=== PATIENT | female | born 1955 | race Caucasian/White ===

== ENCOUNTER 2024-12-29 18:01 | Inpatient (IN) ==
[2024-12-29] MEDS: LACTULOSE 20 GM/30 ML ORAL.SOL PO ONE (18:27)
[2024-12-29 18:42] LABS: Basophils # (Auto) 0.04 K/mcL (0.00-0.30); Eosinophils # (Auto) 0.31 K/mcL (0.00-0.70); Hematocrit 33.2 % (34.1-44.9); Hemoglobin 10.8 g/dL (11.2-15.7); Lymphocytes # (Auto) 1.54 K/mcL (1.50-4.80); Lymphocytes % (Auto) 39.9 % (15.5-49.0); Mean Cell Volume 104.7 fL (80.0-100.0); Mean Corpuscular HGB Conc 32.5 g/dL (31.0-36.0); Mean Platelet Volume 10.3 fL (8.8-12.5); Monocytes # (Auto) 0.39 K/mcL (0.10-0.90); Monocytes % (Auto) 10.1 % (1.0-12.0); Platelet Count 88 K/mcL (140-440); RBC 3.17 M/mcL (3.59-5.38); Red Cell Distribution Width 12.5 % (11.5-14.5); WBC 3.9 K/mcL (4.5-11.0)
[2024-12-29 19:08] LABS: Alcohol, Blood < 10.1 mg/dL; Alcohol,Blood < 0.010 gm/dL (<0.010)
[2024-12-29 19:13] LABS: Thyroid Stimulating Hormone 3.16 uIU/mL (0.27-5.01)
[2024-12-29 19:17] LABS: ALT/SGPT 51 U/L (<40); AST/SGOT 46 U/L (<32); Albumin 3.8 gm/dL (3.2-5.2); Albumin/Globulin Ratio 1.2 (1.0-2.3); Alkaline Phosphatase 140 U/L (39-117); Bilirubin,Total 0.8 mg/dL (0.1-1.0); Blood Urea Nitrogen 35 mg/dL (8-23); Calcium 9.6 mg/dL (8.6-10.4); Carbon Dioxide 25 mmol/L (22-30); Chloride 102 mmol/L (96-108); Globulin 3.3 gm/dL (2.2-3.7); Glomerular Filtration Rate 65; Glucose 220 mg/dL (70-105); Potassium 4.1 mmol/L (3.3-5.1); Sodium 139 mmol/L (133-145)
[2024-12-29 19:32] LABS: INR 1.2 (0.9-1.1); Prothrombin Time 15.3 sec (11.9-14.5)
[2024-12-29 20:05] LABS: Free T4 (Free Thyroxine) 0.75 ng/dL (0.93-1.70)
[2024-12-29] MEDS ORDERED: ALBUTEROL SULFATE 2.5 MG/3 ML NEBULIZER NEB PRN (20:42)
[2024-12-29] MEDS ORDERED: DEXTROSE 31 GM ORAL.SUSP PO PRN (20:42)
[2024-12-29] MEDS ORDERED: ONDANSETRON 4 MG/2 ML VIAL IV PRN (20:42)
[2024-12-29] MEDS ORDERED: DEXTROSE 50% 50 ML VIAL IV PRN (20:42)
[2024-12-29] MEDS: LACTULOSE 20 GM/30 ML ORAL.SOL PO SCH (21:21)
[2024-12-29] MEDS: 0.9 % SODIUM CHLORIDE 10 ML SYRINGE IV SCH (21:21)
[2024-12-29] MEDS: RIFAXIMIN 550 MG TABLET PO SCH (21:21)
[2024-12-29] MEDS: INSULIN LISPRO 1 UNIT/0.01 ML UNIT SQ SCH (21:21)
[2024-12-30 06:40] LABS: Basophils # (Auto) 0.03 K/mcL (0.00-0.30); Basophils % (Auto) 0.9 % (0.0-2.0); Eosinophils # (Auto) 0.24 K/mcL (0.00-0.70); Eosinophils % (Auto) 7.2 % (0.0-7.0); Hematocrit 32.9 % (34.1-44.9); Hemoglobin 10.3 g/dL (11.2-15.7); Mean Cell Volume 108.9 fL (80.0-100.0); Mean Corpuscular HGB Conc 31.3 g/dL (31.0-36.0); Mean Platelet Volume 10.4 fL (8.8-12.5); Monocytes # (Auto) 0.42 K/mcL (0.10-0.90); Monocytes % (Auto) 12.6 % (1.0-12.0); Neutrophils % (Auto) 34.3 % (38.0-78.0); Platelet Count 77 K/mcL (140-440); RBC 3.02 M/mcL (3.59-5.38); Red Cell Distribution Width 12.4 % (11.5-14.5); WBC 3.3 K/mcL (4.5-11.0)
[2024-12-30 06:50] LABS: ALT/SGPT 43 U/L (<40); AST/SGOT 41 U/L (<32); Albumin 3.3 gm/dL (3.2-5.2); Albumin/Globulin Ratio 1.1 (1.0-2.3); Alkaline Phosphatase 113 U/L (39-117); Bilirubin,Direct 0.5 mg/dL (<0.3); Blood Urea Nitrogen 29 mg/dL (8-23); Calcium 9.5 mg/dL (8.6-10.4); Carbon Dioxide 22 mmol/L (22-30); Chloride 104 mmol/L (96-108); Globulin 3.1 gm/dL (2.2-3.7); Glomerular Filtration Rate 75; Glucose 155 mg/dL (70-105); Lactate Dehydrogenase 222 U/L (135-225); Phosphorous 3.7 mg/dL (2.5-4.5); Sodium 139 mmol/L (133-145); Triglycerides 82 mg/dL (<150); Uric Acid 7.7 mg/dL (2.5-8.0)
[2024-12-30] MEDS: INSULIN GLARGINE, HUMAN 1 UNIT/0.01 ML SQ SCH (10:35)
[2024-12-30 21:34] LABS: Appearance,Urine Clear (Clear); Bacteria,Urine Rare /hpf (0); Bilirubin,Urine Negative (Negative); Color,Urine Yellow; Glucose,Urine (UA) Negative (Negative); Ketones,Urine Negative (Negative); Leukocyte Esterase,Urine Negative /uL (Negative); Nitrate,Urine Negative (Negative); PH,Urine 6.5 (5.0-9.0); Protein,Urine Negative (Negative); Urine Blood Negative ery/mcL (Negative); Urine RBC 2 /hpf (0-3); Urine Squamous Epithelial Cell 1 /hpf (0-4); Urine WBC 0 /hpf (0-4); Urobilinogen,Urine Normal
[2024-12-31] MEDS: LACTULOSE 20 GM/30 ML ORAL.SOL PO PRN (14:36)
[2024-12-31] MEDS: LACTULOSE 20 GM/30 ML ORAL.SOL PO SCH (14:36)
[2024-12-31] MEDS ORDERED: NON FORMULARY MEDICATION 1 DOSE MISCELL (Insulin Lispro [Humalog Kwikpen Insulin] 100 unit SUB-Q SCH (15:00)
[2024-12-31] MEDS: INSULIN LISPRO 1 UNIT/0.01 ML UNIT SQ SCH (16:36)
[2024-12-31] MEDS: CARVEDILOL 3.125 MG TABLET PO SCH (20:33)
[2024-12-31] MEDS: MIRTAZAPINE 15 MG TABLET PO SCH (20:33)
[2024-12-31] MEDS: SIMVASTATIN 10 MG TABLET PO SCH (21:36)
[2025-01-01 06:29] LABS: Basophils # (Auto) 0.03 K/mcL (0.00-0.30); Basophils % (Auto) 0.6 % (0.0-2.0); Eosinophils # (Auto) 0.21 K/mcL (0.00-0.70); Eosinophils % (Auto) 4.3 % (0.0-7.0); Hematocrit 32.7 % (34.1-44.9); Hemoglobin 10.8 g/dL (11.2-15.7); Lymphocytes # (Auto) 1.71 K/mcL (1.50-4.80); Lymphocytes % (Auto) 34.7 % (15.5-49.0); Mean Cell Volume 102.2 fL (80.0-100.0); Mean Platelet Volume 10.3 fL (8.8-12.5); Monocytes # (Auto) 0.69 K/mcL (0.10-0.90); Neutrophils % (Auto) 46.2 % (38.0-78.0); Platelet Count 85 K/mcL (140-440); Red Cell Distribution Width 12.3 % (11.5-14.5); WBC 4.9 K/mcL (4.5-11.0)
[2025-01-01 06:50] LABS: ALT/SGPT 48 U/L (<40); AST/SGOT 45 U/L (<32); Albumin 3.3 gm/dL (3.2-5.2); Albumin/Globulin Ratio 1.1 (1.0-2.3); Alkaline Phosphatase 118 U/L (39-117); Bilirubin,Direct 0.5 mg/dL (<0.3); Bilirubin,Total 1.1 mg/dL (0.1-1.0); Blood Urea Nitrogen 23 mg/dL (8-23); Calcium 9.2 mg/dL (8.6-10.4); Carbon Dioxide 23 mmol/L (22-30); Chloride 106 mmol/L (96-108); Glomerular Filtration Rate 75; Glucose 172 mg/dL (70-105); Lactate Dehydrogenase 219 U/L (135-225); Phosphorous 3.2 mg/dL (2.5-4.5); Potassium 3.6 mmol/L (3.3-5.1); Sodium 141 mmol/L (133-145); Triglycerides 75 mg/dL (<150); Uric Acid 7.6 mg/dL (2.5-8.0)
[2025-01-01] MEDS: INSULIN GLARGINE, HUMAN 1 UNIT/0.01 ML SQ SCH (08:58)
[2025-01-01] MEDS: OLMESARTAN MEDOXOMIL 20 MG TABLET PO SCH (08:59)
[2025-01-01] MEDS: DULoxetine 30 MG CAPSULE PO SCH ×2 (08:59)
[2025-01-01] MEDS: ACETAMINOPHEN 500 MG TABLET PO PRN (11:15)
[2025-01-02] MEDS: LACTULOSE 20 GM/30 ML ORAL.SOL PO SCH (09:11)
[2025-01-02] MEDS: INSULIN LISPRO 1 UNIT/0.01 ML UNIT SQ SCH (17:05)
[2025-01-02] MEDS: INSULIN GLARGINE, HUMAN 1 UNIT/0.01 ML SQ SCH (20:10)
[2025-01-02] MEDS ORDERED: INSULIN GLARGINE, HUMAN 1 UNIT/0.01 ML SQ SCH (21:00)
[2025-01-03 07:37] VITALS: TEMP 98.4
[2025-01-03 11:57] LABS: Appearance,Urine CLEAR (Clear); Bilirubin,Urine Negative (Negative); Color,Urine YELLOW; Glucose,Urine (UA) >=500 mg/dL (Negative); Ketones,Urine 5 mg/dL (Negative); Leukocyte Esterase,Urine Negative /uL (Negative); Mucus,Urine FEW /hpf; Nitrate,Urine Negative (Negative); Protein,Urine Negative (Negative); Urine Blood Negative (Negative); Urine Hyaline Cast 1 /lph (0-2); Urine RBC 1 /hpf (0-3); Urine Squamous Epithelial Cell 4 /hpf (0-4); Urine Transitional Epi Cells 1 /hpf (0-2); Urine WBC 2 /hpf (0-4); Urobilinogen,Urine Negative
[2025-01-03 14:50] VITALS: O2SAT 99
[2025-01-03] MEDS ORDERED: INSULIN GLARGINE, HUMAN 1 UNIT/0.01 ML SQ SCH (21:00)
== END 2025-01-03 14:00 | disposition home or self-care (01) | DRG 442 ==
LOC: ED 18:01 → MEDSUR 20:39
PROVIDERS: ADMIT Internal Medicine; ATTEND Internal Medicine

== ENCOUNTER 2025-04-24 09:28 | Inpatient (IN) ==
[2025-04-24 11:09] LABS: Basophils # (Auto) 0.03 K/mcL (0.00-0.30); Basophils % (Auto) 0.6 % (0.0-2.0); Eosinophils # (Auto) 0.34 K/mcL (0.00-0.70); Eosinophils % (Auto) 7.1 % (0.0-7.0); Hematocrit 35.5 % (34.1-44.9); Hemoglobin 11.8 g/dL (11.2-15.7); Lymphocytes # (Auto) 1.51 K/mcL (1.50-4.80); Lymphocytes % (Auto) 31.7 % (15.5-49.0); Mean Cell Volume 103.8 fL (80.0-100.0); Mean Corpuscular HGB Conc 33.2 g/dL (31.0-36.0); Mean Platelet Volume 11.2 fL (8.8-12.5); Monocytes # (Auto) 0.59 K/mcL (0.10-0.90); Monocytes % (Auto) 12.4 % (1.0-12.0); Platelet Count 88 K/mcL (140-440); RBC 3.42 M/mcL (3.59-5.38); WBC 4.8 K/mcL (4.5-11.0)
[2025-04-24 11:35] LABS: ALT/SGPT 57 U/L (<40); AST/SGOT 44 U/L (<32); Albumin 3.8 gm/dL (3.2-5.2); Albumin/Globulin Ratio 1.2 (1.0-2.3); Alkaline Phosphatase 109 U/L (39-117); Bilirubin,Total 1.1 mg/dL (0.1-1.0); Blood Urea Nitrogen 53 mg/dL (8-23); Calcium 9.9 mg/dL (8.6-10.4); Carbon Dioxide 19 mmol/L (22-30); Chloride 102 mmol/L (96-108); Globulin 3.3 gm/dL (2.2-3.7); Glomerular Filtration Rate 38; Glucose 142 mg/dL (70-105); Potassium 5.1 mmol/L (3.3-5.1); Sodium 134 mmol/L (133-145)
[2025-04-24 12:15] LABS: Free T4 (Free Thyroxine) 0.96 ng/dL (0.93-1.70)
[2025-04-24 13:44] LABS: INR 1.2 (0.9-1.1); Prothrombin Time 16.2 sec (11.9-14.5)
[2025-04-24 14:23] LABS: Appearance,Urine CLEAR (Clear); Bilirubin,Urine Negative (Negative); Color,Urine YELLOW; Glucose,Urine (UA) >=500 mg/dL (Negative); Ketones,Urine Negative (Negative); Leukocyte Esterase,Urine Negative /uL (Negative); Mucus,Urine FEW /hpf; Nitrate,Urine Negative (Negative); Protein,Urine Negative (Negative); Urine Blood Negative (Negative); Urine Hyaline Cast 3 /lph (0-2); Urine RBC < 1 /hpf (0-3); Urine Squamous Epithelial Cell 1 /hpf (0-4); Urine Transitional Epi Cells 1 /hpf (0-2); Urine WBC 3 /hpf (0-4); Urobilinogen,Urine Negative
[2025-04-24 14:33] LABS: Amphetamine Screen,Urine None detected; Barbiturate Screen,Urine None detected; Benzodiazepines Screen,Urine Suspect positive; Cannabinoid Screen,Urine None detected; Cocaine Screen,Urine None detected; Fentanyl, Urine Screen None Detected; Opiate Screen,Urine None detected; Oxycodone, Urine Screen None detected; Phencyclidine Screen,Urine None detected
[2025-04-24] MEDS ORDERED: DEXTROSE 31 GM ORAL.SUSP PO PRN (14:50)
[2025-04-24] MEDS ORDERED: POTASSIUM CHLORIDE 40 MEQ in DEXTROSE 5% IN WATER 500 ML IV PRN (14:50)
[2025-04-24] MEDS ORDERED: METOCLOPRAMIDE 10 MG/2 ML VIAL IV PRN (14:50)
[2025-04-24] MEDS ORDERED: IPRATROPIUM/ALBUTEROL 3 ML AMPUL.NEB NEB PRN (14:50)
[2025-04-24] MEDS ORDERED: POLYETHYLENE GLYCOL 3350 17 GM PACKET PO PRN (14:50)
[2025-04-24] MEDS ORDERED: DEXTROSE 50% 50 ML VIAL IV PRN (14:50)
[2025-04-24] MEDS ORDERED: MAGNESIUM SULFATE 2 GM/50 ML BAG IV PRN (14:50)
[2025-04-24] MEDS ORDERED: SENNOSIDES 1 TABLET PO PRN (14:50)
[2025-04-24] MEDS ORDERED: POTASSIUM CHLORIDE 20 MEQ TABLET PO PRN ×2 (14:50)
[2025-04-24] MEDS ORDERED: ONDANSETRON 4 MG/2 ML VIAL IV PRN (14:50)
[2025-04-24] MEDS: 0.9 % SODIUM CHLORIDE 1,000 ML IV SCH (14:55)
[2025-04-24] MEDS: LACTULOSE 20 GM/30 ML ORAL.SOL PO SCH (15:24)
[2025-04-24] MEDS: INSULIN LISPRO 1 UNIT/0.01 ML UNIT SQ SCH (15:30)
[2025-04-24] MEDS: SIMVASTATIN 10 MG TABLET PO SCH (20:41)
[2025-04-24] MEDS: MIRTAZAPINE 15 MG TABLET PO SCH (20:41)
[2025-04-24] MEDS: CARVEDILOL 3.125 MG TABLET PO SCH (20:41)
[2025-04-24] MEDS: INSULIN GLARGINE, HUMAN 1 UNIT/0.01 ML SQ SCH (20:42)
[2025-04-24] MEDS: RIFAXIMIN 550 MG TABLET PO SCH (20:50)
[2025-04-25 06:10] LABS: ALT/SGPT 53 U/L (<40); AST/SGOT 41 U/L (<32); Albumin 3.3 gm/dL (3.2-5.2); Albumin/Globulin Ratio 1.1 (1.0-2.3); Alkaline Phosphatase 100 U/L (39-117); Bilirubin,Direct 0.4 mg/dL (<0.3); Bilirubin,Total 0.7 mg/dL (0.1-1.0); Blood Urea Nitrogen 39 mg/dL (8-23); Calcium 9.3 mg/dL (8.6-10.4); Carbon Dioxide 22 mmol/L (22-30); Chloride 109 mmol/L (96-108); Globulin 2.9 gm/dL (2.2-3.7); Glomerular Filtration Rate 57; Glucose 114 mg/dL (70-105); Lactate Dehydrogenase 227 U/L (135-225); Phosphorous 2.8 mg/dL (2.5-4.5); Potassium 4.6 mmol/L (3.3-5.1); Sodium 141 mmol/L (133-145); Triglycerides 81 mg/dL (<150); Uric Acid 7.7 mg/dL (2.5-8.0)
[2025-04-25 06:19] LABS: Basophils # (Auto) 0.04 K/mcL (0.00-0.30); Basophils % (Auto) 0.8 % (0.0-2.0); Eosinophils # (Auto) 0.37 K/mcL (0.00-0.70); Eosinophils % (Auto) 7.4 % (0.0-7.0); Hematocrit 33.4 % (34.1-44.9); Hemoglobin 10.9 g/dL (11.2-15.7); Lymphocytes # (Auto) 1.78 K/mcL (1.50-4.80); Lymphocytes % (Auto) 35.7 % (15.5-49.0); Mean Corpuscular HGB Conc 32.6 g/dL (31.0-36.0); Mean Platelet Volume 11.1 fL (8.8-12.5); Monocytes # (Auto) 0.72 K/mcL (0.10-0.90); Monocytes % (Auto) 14.4 % (1.0-12.0); Neutrophils % (Auto) 41.7 % (38.0-78.0); Platelet Count 82 K/mcL (140-440); RBC 3.15 M/mcL (3.59-5.38); Red Cell Distribution Width 12.1 % (11.5-14.5)
[2025-04-25] MEDS: LACTULOSE 20 GM/30 ML ORAL.SOL PO ONE (07:39)
[2025-04-25] MEDS: DULoxetine 30 MG CAPSULE PO SCH (09:16)
[2025-04-25] MEDS: ENOXAPARIN 40 MG/0.4 ML SYRINGE SQ SCH (09:16)
[2025-04-26 07:15] LABS: ALT/SGPT 60 U/L (<40); AST/SGOT 49 U/L (<32); Albumin 3.6 gm/dL (3.2-5.2); Albumin/Globulin Ratio 1.2 (1.0-2.3); Alkaline Phosphatase 106 U/L (39-117); Bilirubin,Direct 0.5 mg/dL (<0.3); Blood Urea Nitrogen 25 mg/dL (8-23); Calcium 9.4 mg/dL (8.6-10.4); Carbon Dioxide 21 mmol/L (22-30); Chloride 106 mmol/L (96-108); Glomerular Filtration Rate 75; Glucose 89 mg/dL (70-105); Lactate Dehydrogenase 259 U/L (135-225); Phosphorous 2.8 mg/dL (2.5-4.5); Potassium 4.3 mmol/L (3.3-5.1); Sodium 139 mmol/L (133-145); Triglycerides 74 mg/dL (<150); Uric Acid 7.1 mg/dL (2.5-8.0)
[2025-04-26] MEDS ORDERED: LACTULOSE 20 GM/30 ML ORAL.SOL PO PRN (08:37)
[2025-04-26] MEDS: LACTULOSE 20 GM/30 ML ORAL.SOL PO ONE (09:28)
[2025-04-26] MEDS: LACTULOSE 20 GM/30 ML ORAL.SOL PO SCH (09:45)
[2025-04-27] MEDS: PANTOPRAZOLE 40 MG PACKET PO SCH (06:51)
[2025-04-27 07:15] LABS: ALT/SGPT 69 U/L (<40); AST/SGOT 55 U/L (<32); Albumin 3.9 gm/dL (3.2-5.2); Albumin/Globulin Ratio 1.1 (1.0-2.3); Alkaline Phosphatase 117 U/L (39-117); Bilirubin,Total 1.3 mg/dL (0.1-1.0); Blood Urea Nitrogen 21 mg/dL (8-23); Calcium 9.8 mg/dL (8.6-10.4); Carbon Dioxide 23 mmol/L (22-30); Chloride 101 mmol/L (96-108); Globulin 3.5 gm/dL (2.2-3.7); Glomerular Filtration Rate 65; Glucose 105 mg/dL (70-105); Potassium 3.9 mmol/L (3.3-5.1); Sodium 136 mmol/L (133-145)
[2025-04-27 07:53] LABS: Basophils # (Auto) 0.04 K/mcL (0.00-0.30); Basophils % (Auto) 0.8 % (0.0-2.0); Eosinophils # (Auto) 0.29 K/mcL (0.00-0.70); Eosinophils % (Auto) 6.1 % (0.0-7.0); Hematocrit 41.6 % (34.1-44.9); Hemoglobin 12.6 g/dL (11.2-15.7); Lymphocytes # (Auto) 1.89 K/mcL (1.50-4.80); Lymphocytes % (Auto) 39.8 % (15.5-49.0); Mean Cell Volume 115.2 fL (80.0-100.0); Mean Corpuscular HGB Conc 30.3 g/dL (31.0-36.0); Mean Platelet Volume 12.2 fL (8.8-12.5); Monocytes # (Auto) 0.51 K/mcL (0.10-0.90); Monocytes % (Auto) 10.7 % (1.0-12.0); Neutrophils % (Auto) 42.6 % (38.0-78.0); Platelet Count 42 K/mcL (140-440); RBC 3.61 M/mcL (3.59-5.38); Red Cell Distribution Width 11.8 % (11.5-14.5); WBC 4.8 K/mcL (4.5-11.0)
[2025-04-27 15:11] VITALS: TEMP 98.1; O2SAT 100
[2025-05-02 10:09] LABS: Alprazolam, Urine Negative (Cutoff=100); Clonazepam, Urine Negative (Cutoff=100); Flurazepam, Urine Negative (Cutoff=100); Lorazepam, Urine Negative (Cutoff=100); Midazolam, Urine Negative (Cutoff=100); Nordiazepam, Urine Negative (Cutoff=100); Oxazepam, Urine Negative (Cutoff=100); Temazepam, Urine Negative (Cutoff=100); Triazolam, Urine Negative (Cutoff=100)
== END 2025-04-27 15:30 | disposition home health service (06) | DRG 442 ==
LOC: ED 09:28 → ICU 14:33 → MEDSUR 04-25 12:40
PROVIDERS: ADMIT Internal Medicine; ATTEND Internal Medicine

== ENCOUNTER 2025-07-12 18:30 | Inpatient (IN) ==
[2025-07-12] MEDS: LACTULOSE 20 GM/30 ML ORAL.SOL PO ONE (19:41)
[2025-07-12 20:02] LABS: Basophils # (Auto) 0.04 K/mcL (0.00-0.30); Basophils % (Auto) 0.8 % (0.0-2.0); Eosinophils # (Auto) 0.26 K/mcL (0.00-0.70); Eosinophils % (Auto) 5.2 % (0.0-7.0); Hematocrit 34.2 % (34.1-44.9); Hemoglobin 10.9 g/dL (11.2-15.7); Lymphocytes # (Auto) 1.76 K/mcL (1.50-4.80); Lymphocytes % (Auto) 35.3 % (15.5-49.0); Mean Corpuscular HGB Conc 31.9 g/dL (31.0-36.0); Monocytes # (Auto) 0.54 K/mcL (0.10-0.90); Monocytes % (Auto) 10.8 % (1.0-12.0); Neutrophils % (Auto) 47.9 % (38.0-78.0); Platelet Count 94 K/mcL (140-440); RBC 3.22 M/mcL (3.59-5.38); WBC 5.0 K/mcL (4.5-11.0)
[2025-07-12 20:06] LABS: INR 1.2 (0.9-1.1); Partial Thromboplastin Time 33.7 sec (20.0-37.0); Prothrombin Time 15.6 sec (11.9-14.5)
[2025-07-12 20:07] LABS: ALT/SGPT 60 U/L (<40); AST/SGOT 56 U/L (<32); Albumin 3.9 gm/dL (3.2-5.2); Albumin/Globulin Ratio 1.3 (1.0-2.3); Alkaline Phosphatase 141 U/L (39-117); Anion Gap 12.0 (8.0-16.0); Bilirubin,Total 0.7 mg/dL (0.1-1.0); Blood Urea Nitrogen 44 mg/dL (8-23); Calcium 9.6 mg/dL (8.6-10.4); Carbon Dioxide 21 mmol/L (22-30); Chloride 104 mmol/L (96-108); Globulin 3.0 gm/dL (2.2-3.7); Glucose 136 mg/dL (70-105); Potassium 4.6 mmol/L (3.3-5.1); Sodium 137 mmol/L (133-145)
[2025-07-12] MEDS: DEXTROSE 50% 50 ML VIAL IV ONE (21:50)
[2025-07-12] MEDS: 0.9 % SODIUM CHLORIDE 1,000 ML IV ONE (22:00)
[2025-07-12] MEDS: NOREPINEPHRINE 250 ML IV SCH (22:08)
[2025-07-12] MEDS: DEXTROSE 50% 50 ML SYRINGE IV ONE ×2 (22:13→22:21)
[2025-07-12 22:14] LABS: POC Blood Urea Nitrogen 38.0 (6-20); POC CO2 21.0 (22-30); POC Calcium, Ionized 1.23 (1.16-1.32); POC Glucose, Random 167.0 (70-105)
[2025-07-12] MEDS: NALOXONE HCL 0.4 MG/ML VIAL IV ONE (22:14)
[2025-07-12] MEDS: NOREPINEPHRINE BITARTRATE 16 MG in 0.9 % SODIUM CHLORIDE 234 ML IV SCH (22:15)
[2025-07-12] MEDS: NALOXONE HCL 0.4 MG/ML VIAL ONE (22:19)
[2025-07-12] MEDS: NOREPINEPHRINE 250 ML IV ONE (22:22)
[2025-07-12] MEDS ORDERED: DEXTROSE 31 GM ORAL.SUSP PO PRN (23:10)
[2025-07-12] MEDS ORDERED: ONDANSETRON 4 MG/2 ML VIAL IV PRN (23:10)
[2025-07-12] MEDS ORDERED: DEXTROSE 50% 50 ML VIAL IV PRN (23:10)
[2025-07-12] MEDS: 0.9 % SODIUM CHLORIDE 250 ML IV SCH (23:20)
[2025-07-12] MEDS: 0.9 % SODIUM CHLORIDE 1,000 ML IV SCH (23:29)
[2025-07-12] MEDS: 0.9 % SODIUM CHLORIDE 10 ML SYRINGE IV SCH (23:30)
[2025-07-12] MEDS: RIFAXIMIN 550 MG TABLET PO SCH (23:47)
[2025-07-12] MEDS: LACTULOSE 20 GM/30 ML ORAL.SOL PO SCH (23:47)
[2025-07-12 23:48] LABS: Bilirubin,Urine Negative (Negative); Color,Urine Yellow; Glucose,Urine (UA) >=1000 mg/dL (Negative); Ketones,Urine Negative (Negative); Leukocyte Esterase,Urine Negative /uL (Negative); PH,Urine 5.5 (5.0-9.0); Protein,Urine Negative (Negative); Specific Gravity,Urine 1.015 (1.000-1.035); Urobilinogen,Urine 0.2 mg/dL
[2025-07-12] MEDS ORDERED: IOPAMIDOL 100 ML BOTTLE IV ONE (23:52)
[2025-07-12 23:55] LABS: Basophils # (Auto) 0.06 K/mcL (0.00-0.30); Basophils % (Auto) 1.2 % (0.0-2.0); Eosinophils # (Auto) 0.24 K/mcL (0.00-0.70); Eosinophils % (Auto) 4.7 % (0.0-7.0); Hematocrit 31.8 % (34.1-44.9); Hemoglobin 10.1 g/dL (11.2-15.7); Lymphocytes # (Auto) 2.02 K/mcL (1.50-4.80); Lymphocytes % (Auto) 39.8 % (15.5-49.0); Mean Corpuscular HGB Conc 31.8 g/dL (31.0-36.0); Monocytes # (Auto) 0.70 K/mcL (0.10-0.90); Monocytes % (Auto) 13.8 % (1.0-12.0); Neutrophils % (Auto) 40.5 % (38.0-78.0); Platelet Count 91 K/mcL (140-440); RBC 2.93 M/mcL (3.59-5.38); WBC 5.1 K/mcL (4.5-11.0)
[2025-07-13 00:11] LABS: ALT/SGPT 58 U/L (<40); AST/SGOT 54 U/L (<32); Albumin 3.6 gm/dL (3.2-5.2); Albumin/Globulin Ratio 1.3 (1.0-2.3); Alkaline Phosphatase 115 U/L (39-117); Anion Gap 16.0 (8.0-16.0); Bilirubin,Direct 0.3 mg/dL (<0.3); Bilirubin,Total 0.6 mg/dL (0.1-1.0); Blood Urea Nitrogen 44 mg/dL (8-23); Calcium 9.3 mg/dL (8.6-10.4); Carbon Dioxide 17 mmol/L (22-30); Chloride 106 mmol/L (96-108); Globulin 2.7 gm/dL (2.2-3.7); Glucose 167 mg/dL (70-105); Phosphorous 4.0 mg/dL (2.5-4.5); Potassium 4.2 mmol/L (3.3-5.1); Sodium 139 mmol/L (133-145); Triglycerides 77 mg/dL (<150); Uric Acid 6.8 mg/dL (2.5-8.0)
[2025-07-13] MEDS: DEXTROSE 5%-NS 1,000 ML IV SCH ×2 (00:22→11:09)
[2025-07-13] MEDS: LACTULOSE 20 GM/30 ML ORAL.SOL PO SCH ×2 (00:23→08:28)
[2025-07-13] MEDS: LACTULOSE 20 GM/30 ML ORAL.SOL PR SCH (00:29)
[2025-07-13] MEDS: cefTRIAXone 1 GM VIAL IV ONE (00:29)
[2025-07-13] MEDS: LACTULOSE 20 GM/30 ML ORAL.SOL ONE (00:39)
[2025-07-13] MEDS: cefTRIAXone 1 GM VIAL ONE (00:39)
[2025-07-13] MEDS: 0.9 % SODIUM CHLORIDE 250 ML IV SCH ×2 (00:57)
[2025-07-13 04:57] LABS: ALT/SGPT 49 U/L (<40); AST/SGOT 45 U/L (<32); Albumin 3.2 gm/dL (3.2-5.2); Albumin/Globulin Ratio 1.3 (1.0-2.3); Alkaline Phosphatase 109 U/L (39-117); Anion Gap 11.0 (8.0-16.0); Bilirubin,Direct 0.4 mg/dL (<0.3); Bilirubin,Total 0.7 mg/dL (0.1-1.0); Blood Urea Nitrogen 38 mg/dL (8-23); Calcium 8.7 mg/dL (8.6-10.4); Carbon Dioxide 19 mmol/L (22-30); Chloride 109 mmol/L (96-108); Globulin 2.5 gm/dL (2.2-3.7); Glucose 132 mg/dL (70-105); Phosphorous 4.1 mg/dL (2.5-4.5); Potassium 4.7 mmol/L (3.3-5.1); Sodium 139 mmol/L (133-145); Triglycerides 60 mg/dL (<150); Uric Acid 6.2 mg/dL (2.5-8.0)
[2025-07-13 05:10] LABS: Basophils # (Auto) 0.03 K/mcL (0.00-0.30); Basophils % (Auto) 0.9 % (0.0-2.0); Eosinophils # (Auto) 0.10 K/mcL (0.00-0.70); Eosinophils % (Auto) 3.0 % (0.0-7.0); Hematocrit 31.6 % (34.1-44.9); Hemoglobin 10.4 g/dL (11.2-15.7); Lymphocytes # (Auto) 1.17 K/mcL (1.50-4.80); Lymphocytes % (Auto) 34.9 % (15.5-49.0); Mean Corpuscular HGB Conc 32.9 g/dL (31.0-36.0); Monocytes # (Auto) 0.49 K/mcL (0.10-0.90); Monocytes % (Auto) 14.6 % (1.0-12.0); Neutrophils % (Auto) 46.6 % (38.0-78.0); Platelet Count 78 K/mcL (140-440); RBC 2.93 M/mcL (3.59-5.38); WBC 3.4 K/mcL (4.5-11.0)
[2025-07-13 05:41] LABS: INR 1.4 (0.9-1.1); Prothrombin Time 18.4 sec (11.9-14.5)
[2025-07-13] MEDS: INSULIN LISPRO 1 UNIT/0.01 ML UNIT SQ SCH (07:00)
[2025-07-13] MEDS: ESCITALOPRAM 10 MG TABLET PO SCH (08:26)
[2025-07-13] MEDS: SENNOSIDES 1 TABLET PO SCH (08:26)
[2025-07-13] MEDS: DOCUSATE SODIUM 100 MG CAPSULE PO SCH (08:59)
[2025-07-13] MEDS ORDERED: NON FORMULARY MEDICATION 1 DOSE MISCELL (Insulin Lispro [Humalog Kwikpen Insulin] 100 unit SUB-Q SCH (09:00)
[2025-07-13] MEDS ORDERED: CARVEDILOL 3.125 MG TABLET PO SCH (09:00)
[2025-07-13] MEDS ORDERED: ENOXAPARIN 40 MG/0.4 ML SYRINGE SQ SCH (09:00)
[2025-07-13] MEDS: ACETAMINOPHEN 325 MG TABLET PO SCH (20:23)
[2025-07-13] MEDS: SIMVASTATIN 10 MG TABLET PO SCH (20:23)
[2025-07-13] MEDS: MELATONIN 3 MG TABLET PO PRN (20:23)
[2025-07-13] MEDS ORDERED: INSULIN DEGLUDEC 200 UNIT/ML SUB-Q SCH (21:00)
[2025-07-13] MEDS ORDERED: MIRTAZAPINE 15 MG TABLET PO SCH (21:00)
[2025-07-13] MEDS ORDERED: INSULIN SUB-Q SCH (21:00)
[2025-07-13] MEDS ORDERED: [UNRECOGNIZED DRUG - OTHER] SUB-Q SCH (21:00)
[2025-07-14] MEDS: LACTULOSE 20 GM/30 ML ORAL.SOL PO SCH (06:48)
[2025-07-14 07:01] LABS: Basophils # (Auto) 0.04 K/mcL (0.00-0.30); Basophils % (Auto) 1.1 % (0.0-2.0); Eosinophils # (Auto) 0.24 K/mcL (0.00-0.70); Eosinophils % (Auto) 6.4 % (0.0-7.0); Hematocrit 31.7 % (34.1-44.9); Hemoglobin 10.4 g/dL (11.2-15.7); Lymphocytes # (Auto) 1.47 K/mcL (1.50-4.80); Lymphocytes % (Auto) 39.1 % (15.5-49.0); Mean Corpuscular HGB Conc 32.8 g/dL (31.0-36.0); Monocytes # (Auto) 0.51 K/mcL (0.10-0.90); Monocytes % (Auto) 13.6 % (1.0-12.0); Neutrophils % (Auto) 39.8 % (38.0-78.0); Platelet Count 74 K/mcL (140-440); RBC 3.01 M/mcL (3.59-5.38); WBC 3.8 K/mcL (4.5-11.0)
[2025-07-14 07:24] LABS: ALT/SGPT 51 U/L (<40); AST/SGOT 46 U/L (<32); Albumin 3.5 gm/dL (3.2-5.2); Albumin/Globulin Ratio 1.3 (1.0-2.3); Alkaline Phosphatase 111 U/L (39-117); Anion Gap 10.0 (8.0-16.0); Bilirubin,Direct 0.5 mg/dL (<0.3); Bilirubin,Total 1.1 mg/dL (0.1-1.0); Blood Urea Nitrogen 23 mg/dL (8-23); Calcium 9.3 mg/dL (8.6-10.4); Carbon Dioxide 21 mmol/L (22-30); Chloride 109 mmol/L (96-108); Globulin 2.6 gm/dL (2.2-3.7); Glucose 77 mg/dL (70-105); Phosphorous 3.5 mg/dL (2.5-4.5); Potassium 3.7 mmol/L (3.3-5.1); Sodium 140 mmol/L (133-145); Triglycerides 87 mg/dL (<150); Uric Acid 6.3 mg/dL (2.5-8.0)
[2025-07-14 07:25] LABS: INR 1.3 (0.9-1.1); Prothrombin Time 17.8 sec (11.9-14.5)
[2025-07-14] MEDS: cefTRIAXone 1 GM VIAL IV SCH (08:18)
[2025-07-14] MEDS: ACETAMINOPHEN 325 MG TABLET PO SCH (10:37)
[2025-07-14] MEDS: 0.9 % SODIUM CHLORIDE 1,000 ML IV SCH (16:33)
[2025-07-14] MEDS: CARVEDILOL 6.25 MG TABLET PO SCH (17:27)
[2025-07-14] MEDS: INSULIN GLARGINE, HUMAN 1 UNIT/0.01 ML SQ SCH (21:31)
[2025-07-15 06:24] LABS: INR 1.4 (0.9-1.1); Prothrombin Time 17.7 sec (11.9-14.5)
[2025-07-15 06:28] LABS: Basophils # (Auto) 0.04 K/mcL (0.00-0.30); Basophils % (Auto) 1.1 % (0.0-2.0); Eosinophils # (Auto) 0.24 K/mcL (0.00-0.70); Eosinophils % (Auto) 6.3 % (0.0-7.0); Hematocrit 31.4 % (34.1-44.9); Hemoglobin 9.9 g/dL (11.2-15.7); Lymphocytes # (Auto) 1.26 K/mcL (1.50-4.80); Lymphocytes % (Auto) 33.2 % (15.5-49.0); Mean Corpuscular HGB Conc 31.5 g/dL (31.0-36.0); Monocytes # (Auto) 0.50 K/mcL (0.10-0.90); Monocytes % (Auto) 13.2 % (1.0-12.0); Neutrophils % (Auto) 46.2 % (38.0-78.0); Platelet Count 70 K/mcL (140-440); RBC 2.88 M/mcL (3.59-5.38); WBC 3.8 K/mcL (4.5-11.0)
[2025-07-15 06:56] LABS: ALT/SGPT 50 U/L (<40); AST/SGOT 52 U/L (<32); Albumin 3.3 gm/dL (3.2-5.2); Albumin/Globulin Ratio 1.3 (1.0-2.3); Alkaline Phosphatase 106 U/L (39-117); Anion Gap 11.0 (8.0-16.0); Bilirubin,Direct 0.4 mg/dL (<0.3); Bilirubin,Total 1.0 mg/dL (0.1-1.0); Blood Urea Nitrogen 24 mg/dL (8-23); Calcium 8.8 mg/dL (8.6-10.4); Carbon Dioxide 19 mmol/L (22-30); Chloride 109 mmol/L (96-108); Globulin 2.5 gm/dL (2.2-3.7); Glucose 70 mg/dL (70-105); Phosphorous 3.1 mg/dL (2.5-4.5); Potassium 3.7 mmol/L (3.3-5.1); Sodium 139 mmol/L (133-145); Triglycerides 71 mg/dL (<150); Uric Acid 6.0 mg/dL (2.5-8.0)
[2025-07-15] MEDS: LACTULOSE 20 GM/30 ML ORAL.SOL PO SCH (08:46)
[2025-07-15] MEDS: SPIRONOLACTONE 25 MG TABLET PO SCH (08:48)
[2025-07-15] MEDS: OLMESARTAN MEDOXOMIL 20 MG TABLET PO SCH (08:49)
[2025-07-15] MEDS ORDERED: NOREPINEPHRINE 250 ML IV PRN (09:09)
[2025-07-16 06:08] LABS: Basophils # (Auto) 0.03 K/mcL (0.00-0.30); Basophils % (Auto) 0.9 % (0.0-2.0); Eosinophils # (Auto) 0.20 K/mcL (0.00-0.70); Eosinophils % (Auto) 6.3 % (0.0-7.0); Hematocrit 30.6 % (34.1-44.9); Hemoglobin 9.7 g/dL (11.2-15.7); Lymphocytes # (Auto) 1.11 K/mcL (1.50-4.80); Lymphocytes % (Auto) 35.0 % (15.5-49.0); Mean Corpuscular HGB Conc 31.7 g/dL (31.0-36.0); Monocytes # (Auto) 0.42 K/mcL (0.10-0.90); Monocytes % (Auto) 13.2 % (1.0-12.0); Neutrophils % (Auto) 44.6 % (38.0-78.0); Platelet Count 72 K/mcL (140-440); RBC 2.81 M/mcL (3.59-5.38); WBC 3.2 K/mcL (4.5-11.0)
[2025-07-16 06:32] LABS: ALT/SGPT 52 U/L (<40); AST/SGOT 58 U/L (<32); Albumin 3.2 gm/dL (3.2-5.2); Albumin/Globulin Ratio 1.3 (1.0-2.3); Alkaline Phosphatase 108 U/L (39-117); Anion Gap 11.0 (8.0-16.0); Bilirubin,Direct 0.4 mg/dL (<0.3); Bilirubin,Total 0.8 mg/dL (0.1-1.0); Blood Urea Nitrogen 24 mg/dL (8-23); Calcium 8.8 mg/dL (8.6-10.4); Carbon Dioxide 20 mmol/L (22-30); Chloride 109 mmol/L (96-108); Globulin 2.5 gm/dL (2.2-3.7); Glucose 76 mg/dL (70-105); Phosphorous 3.6 mg/dL (2.5-4.5); Potassium 3.9 mmol/L (3.3-5.1); Sodium 140 mmol/L (133-145); Triglycerides 63 mg/dL (<150); Uric Acid 6.1 mg/dL (2.5-8.0)
[2025-07-16 06:37] LABS: INR 1.3 (0.9-1.1); Prothrombin Time 16.8 sec (11.9-14.5)
[2025-07-17 03:00] VITALS: TEMP 98.4
[2025-07-17 06:35] LABS: INR 1.3 (0.9-1.1); Prothrombin Time 17.4 sec (11.9-14.5)
[2025-07-17 06:39] LABS: Basophils # (Auto) 0.04 K/mcL (0.00-0.30); Basophils % (Auto) 1.3 % (0.0-2.0); Eosinophils # (Auto) 0.19 K/mcL (0.00-0.70); Eosinophils % (Auto) 6.4 % (0.0-7.0); Hematocrit 27.8 % (34.1-44.9); Hemoglobin 9.2 g/dL (11.2-15.7); Lymphocytes # (Auto) 1.23 K/mcL (1.50-4.80); Lymphocytes % (Auto) 41.1 % (15.5-49.0); Mean Corpuscular HGB Conc 33.1 g/dL (31.0-36.0); Monocytes # (Auto) 0.38 K/mcL (0.10-0.90); Monocytes % (Auto) 12.7 % (1.0-12.0); Neutrophils % (Auto) 38.5 % (38.0-78.0); Platelet Count 65 K/mcL (140-440); RBC 2.65 M/mcL (3.59-5.38); WBC 3.0 K/mcL (4.5-11.0)
[2025-07-17 07:22] LABS: ALT/SGPT 55 U/L (<40); AST/SGOT 60 U/L (<32); Albumin 3.0 gm/dL (3.2-5.2); Albumin/Globulin Ratio 1.3 (1.0-2.3); Alkaline Phosphatase 106 U/L (39-117); Anion Gap 11.0 (8.0-16.0); Bilirubin,Direct 0.4 mg/dL (<0.3); Bilirubin,Total 0.8 mg/dL (0.1-1.0); Blood Urea Nitrogen 24 mg/dL (8-23); Calcium 8.7 mg/dL (8.6-10.4); Carbon Dioxide 18 mmol/L (22-30); Chloride 109 mmol/L (96-108); Globulin 2.4 gm/dL (2.2-3.7); Glucose 85 mg/dL (70-105); Phosphorous 3.5 mg/dL (2.5-4.5); Potassium 3.7 mmol/L (3.3-5.1); Sodium 138 mmol/L (133-145); Triglycerides 74 mg/dL (<150); Uric Acid 5.7 mg/dL (2.5-8.0)
[2025-07-17 11:05] VITALS: O2SAT 98
== END 2025-07-17 14:31 | disposition home health service (06) | DRG 441 ==
LOC: ED 18:30 → ICU 23:06 → MEDSUR 07-16 15:00
PROVIDERS: ADMIT Student in an Organized Health Care Education/Training Program; ATTEND Student in an Organized Health Care Education/Training Program